=== PATIENT | female | born 1955 | race Caucasian/White ===

== ENCOUNTER → 2017-11-07 | Outpatient (CLI) | payer OTHER, SELFPAY ==
[2017-11-07 11:13] LABS: Hematocrit 38.7 % (36-46); Hemoglobin 13.3 g/dL (12.0-16.0); Mean Corpuscular HGB Conc 34.4 % (30-36); Mean Corpuscular Hemoglobin 31.4 PG (26-34); Mean Corpuscular Volume 91.4 fL (80-100); Platelet Count 127 X10^3/uL (150-400); Red Blood Cell Count 4.24 X10^6/uL (4.0-5.2); Red Cell Distribution Width 13.1 % (11.6-14.8); White Blood Cell Count 10.4 X10^3/uL (4.5-11.0)
[2017-11-07 11:14] LABS: Add Manual Diff / Slide Review YES
[2017-11-07 11:31] LABS: Neutrophils Absolute Manual 3016 /uL (3000-5900); Total Cells Counted 100
[2017-11-07 11:32] LABS: Smudge Cells 1+
[2017-11-07 11:34] LABS: Alanine Aminotransferase 28 IU/L (9-52); Albumin 4.3 g/dL (3.5-5.0); Albumin Globulin Ratio 1.4 (1.0-2.8); Alkaline Phosphatase 70 U/L (38-126); Aspartate Aminotransferase 27 IU/L (14-36); BUN Creatinine Ratio 31.4 (6-22); Bilirubin Total 0.5 mg/dL (0.2-1.3); Calcium 9.5 mg/dL (8.4-10.2); Estimated Glomerular Filt Rate > 60.0 mL/min (>60); Glucose 107 mg/dL (80-110); HEMOLYSIS 16 (0-50); Lactate Dehydrogenase 431 U/L (313-618); Potassium 4.3 mmol/L (3.4-5.1); Sodium 140 mmol/L (137-145); Total Protein 7.3 g/dL (6.3-8.2)
== END ==
LOC: ONC 10:57
PROVIDERS: Family Provider Family Medicine; PCP Family Medicine; Visit Provider Nurse Practitioner Gerontology
DX: D72.820 Lymphocytosis (symptomatic) (principal)
CPT/HCPCS: 36415; 80053; 83615; 85025

== ENCOUNTER → 2018-04-17 08:37 | Outpatient (CLI) | payer OTHER, SELFPAY ==
[2018-04-17 10:09] LABS: Hematocrit 41.5 % (36-46); Mean Corpuscular HGB Conc 33.7 % (30-36); Mean Corpuscular Hemoglobin 31.1 PG (26-34); Mean Corpuscular Volume 92.3 fL (80-100); Platelet Count 139 X10^3/uL (150-400); Red Blood Cell Count 4.49 X10^6/uL (4.0-5.2); Red Cell Distribution Width 13.1 % (11.6-14.8); White Blood Cell Count 9.5 X10^3/uL (4.5-11.0)
[2018-04-17 10:10] LABS: Add Manual Diff / Slide Review YES
[2018-04-17 10:20] LABS: BUN Creatinine Ratio 28.8 (6-22); Blood Urea Nitrogen 23 mg/dL (7-17); Calcium 9.3 mg/dL (8.4-10.2); Carbon Dioxide 32 mmol/L (22-32); Chloride 104 mmol/L (98-107); Cholesterol 255 mg/dL (140-199); Estimated Glomerular Filt Rate > 60.0 mL/min (>60); Glucose 104 mg/dL (80-110); HDL Cholesterol 70 mg/dL (40-60); HEMOLYSIS < 15 (0-50); LDL Cholesterol Calculated 172 mg/dL (<100); Potassium 4.2 mmol/L (3.4-5.1); Sodium 144 mmol/L (137-145); Triglycerides 65 mg/dL (35-150)
[2018-04-17 10:40] LABS: Thyroid Stimulating Hormone 2.25 uIU/mL (0.47-4.68)
[2018-04-17 12:27] LABS: Neutrophils Absolute Manual 2185 /uL (3000-5900); Total Cells Counted 100
[2018-04-17 12:28] LABS: Smudge Cells 1+
== END ==
PROVIDERS: Family Provider Family Medicine; PCP Family Medicine; Visit Provider Internal Medicine
DX: E03.9 Hypothyroidism, unspecified (principal); E78.5 Hyperlipidemia, unspecified
CPT/HCPCS: 36415; 80048; 80061; 84443; 85025

== ENCOUNTER → 2018-04-19 11:29 | Outpatient (CLI) | payer OTHER, SELFPAY ==
[2018-04-19 11:45] LABS: Add Manual Diff / Slide Review NO; Basophils Percent Auto 0.2 % (0-2); Eosinophils Percent Auto 0.6 % (2-4); Hematocrit 41.1 % (36-46); Hemoglobin 13.6 g/dL (12.0-16.0); Lymphocytes Percent Auto 60.6 % (25-40); Mean Corpuscular Volume 93.7 fL (80-100); Monocytes Percent Auto 5.6 % (3-14); Neutrophils Absolute Auto 3800 /uL (3000-5900); Platelet Count 141 X10^3/uL (150-400); Red Blood Cell Count 4.39 X10^6/uL (4.0-5.2); Red Cell Distribution Width 13.3 % (11.6-14.8); White Blood Cell Count 11.5 X10^3/uL (4.5-11.0)
[2018-04-19 12:11] LABS: Alanine Aminotransferase 32 IU/L (9-52); Albumin 4.4 g/dL (3.5-5.0); Albumin Globulin Ratio 1.5 (1.0-2.8); Alkaline Phosphatase 82 U/L (38-126); Aspartate Aminotransferase 28 IU/L (14-36); Bilirubin Total 0.6 mg/dL (0.2-1.3); Blood Urea Nitrogen 24 mg/dL (7-17); Calcium 9.3 mg/dL (8.4-10.2); Carbon Dioxide 30 mmol/L (22-32); Chloride 104 mmol/L (98-107); Estimated Glomerular Filt Rate > 60.0 mL/min (>60); Globulin 2.9 g/dL (1.7-4.1); Glucose 94 mg/dL (80-110); HEMOLYSIS < 15 (0-50); Lactate Dehydrogenase 432 U/L (313-618); Potassium 3.9 mmol/L (3.4-5.1); Sodium 143 mmol/L (137-145); Total Protein 7.3 g/dL (6.3-8.2)
== END ==
PROVIDERS: Family Provider Family Medicine; PCP Family Medicine; Visit Provider Nurse Practitioner Gerontology
DX: D72.820 Lymphocytosis (symptomatic) (principal)
CPT/HCPCS: 36415; 80053; 83615; 85025

== ENCOUNTER → 2018-08-21 11:41 | Outpatient (CLI) | payer OTHER, SELFPAY ==
--- NOTE | 2018-08-21 | DI.MG.S_ITS ---
BILATERAL DIGITAL SCREENING MAMMOGRAM 3D/2D WITH CAD: 08/21/2018 CLINICAL: Routine screening. Comparison is made to exam dated: 04/21/2016 [facility]. The tissue of both breasts is heterogeneously dense. This may lower the sensitivity of mammography. Current study was also evaluated with a Computer Aided Detection (CAD) system. No significant masses, calcifications, or other findings are seen in either breast. There has been no significant interval change. IMPRESSION: NEGATIVE There is no mammographic evidence of malignancy. A 1 year screening mammogram is recommended. This exam was interpreted at Station ID: [id number]. NOTE: For mammograms, a report in lay terms will be sent to the patient. Approximately 15% of breast malignancies will not be visualized mammographically. In the management of a palpable breast mass, a negative mammogram must not discourage biopsy of a clinically suspicious lesion. Electronically Signed By: Hussein velasco/lachelle:08/21/2018 13:22:27 letter sent: Normal Exam ACR BI-RADS Category 1: Negative [id number]
== END ==
PROVIDERS: Family Provider Family Medicine; PCP Family Medicine; Visit Provider Family Medicine
DX: Z12.31 Encounter for screening mammogram for malignant neoplasm of breast (principal)
CPT/HCPCS: 77063; 77067

== ENCOUNTER → 2019-04-16 08:53 | Outpatient (CLI) | payer OTHER, SELFPAY ==
[2019-04-16 10:39] LABS: Thyroid Stimulating Hormone 2.37 uIU/mL (0.47-4.68)
== END ==
PROVIDERS: PCP Family Medicine; Visit Provider Family Medicine
DX: E03.9 Hypothyroidism, unspecified (principal)
CPT/HCPCS: 36415; 84443

== ENCOUNTER → 2019-08-31 11:53 | Outpatient (CLI) | payer OTHER, SELFPAY ==
--- NOTE | 2019-08-31 | DI.MG.S_ITS ---
BILATERAL DIGITAL SCREENING MAMMOGRAM 3D/2D WITH CAD: 08/31/2019 CLINICAL: Routine screening. Comparison is made to exams dated: 08/21/2018 mammogram, 04/21/2016 mammogram - Located [facility], and 11/28/2014 mammogram - [facility]. The tissue of both breasts is heterogeneously dense. This may lower the sensitivity of mammography. Current study was also evaluated with a Computer Aided Detection (CAD) system. No significant masses, calcifications, or other findings are seen in either breast. There has been no significant interval change. IMPRESSION: NEGATIVE There is no mammographic evidence of malignancy. A 1 year screening mammogram is recommended. This exam was interpreted at Station ID: [id number]. NOTE: For mammograms, a report in lay terms will be sent to the patient. Approximately 15% of breast malignancies will not be visualized mammographically. In the management of a palpable breast mass, a negative mammogram must not discourage biopsy of a clinically suspicious lesion. Electronically Signed By: Hussein velasco/lachelle:08/31/2019 14:14:25 letter sent: Normal Exam ACR BI-RADS Category 1: Negative [id number]
== END ==
PROVIDERS: PCP Family Medicine; Referring Provider Family Medicine; Visit Provider Family Medicine
DX: Z12.31 Encounter for screening mammogram for malignant neoplasm of breast (principal)
CPT/HCPCS: 77063; 77067

== ENCOUNTER → 2020-04-28 14:09 | Outpatient (CLI) | payer OTHER, SELFPAY ==
[2020-04-28 14:35] LABS: Add Manual Diff / Slide Review YES; Hemoglobin 12.6 g/dL (12.0-16.0); Mean Corpuscular HGB Conc 33.1 % (30-36); Mean Corpuscular Hemoglobin 31.2 PG (26-34); Platelet Count 164 X10^3/uL (150-400); Red Blood Cell Count 4.04 X10^6/uL (4.0-5.2); Red Cell Distribution Width 13.5 % (11.6-14.8); White Blood Cell Count 13.2 X10^3/uL (4.5-11.0)
[2020-04-28 15:03] LABS: Neutrophils Absolute Manual 4488 /uL (3000-5900); RBC Morphology Normal Morphology; Total Cells Counted 100
== END ==
PROVIDERS: PCP Family Medicine; Referring Provider Internal Medicine Hematology & Oncology; Visit Provider Internal Medicine Hematology & Oncology
DX: D72.820 Lymphocytosis (symptomatic) (principal)
CPT/HCPCS: 36415; 85025

== ENCOUNTER → 2020-06-24 07:58 | Outpatient (CLI) | payer OTHER, SELFPAY ==
[2020-06-24 09:55] LABS: Cholesterol 295 mg/dL (140-199); Glucose 97 mg/dL (80-110); HDL Cholesterol 85 mg/dL (40-60); LDL Cholesterol Calculated 192 mg/dL (<100); Triglycerides 89 mg/dL (35-150)
[2020-06-24 10:23] LABS: Thyroid Stimulating Hormone 5.27 uIU/mL (0.47-4.68)
== END ==
PROVIDERS: PCP Family Medicine; Referring Provider Family Medicine; Visit Provider Family Medicine
DX: E78.5 Hyperlipidemia, unspecified (principal); Z13.1 Encounter for screening for diabetes mellitus; E03.9 Hypothyroidism, unspecified
CPT/HCPCS: 36415; 80061; 82947; 84443

== ENCOUNTER → 2020-08-21 07:25 | Outpatient (CLI) | payer OTHER, SELFPAY ==
[2020-08-21 08:26] LABS: Cholesterol 296 mg/dL (140-199); HDL Cholesterol 72 mg/dL (40-60); LDL Cholesterol Calculated 212 mg/dL (<100); Triglycerides 60 mg/dL (35-150)
[2020-08-21 09:21] LABS: Thyroid Stimulating Hormone 6.15 uIU/mL (0.47-4.68)
== END ==
PROVIDERS: PCP Family Medicine; Referring Provider Family Medicine; Visit Provider Family Medicine
DX: E03.9 Hypothyroidism, unspecified (principal); E78.5 Hyperlipidemia, unspecified
CPT/HCPCS: 36415; 80061; 84443

== ENCOUNTER → 2020-09-01 11:49 | Outpatient (CLI) | payer OTHER, SELFPAY ==
--- NOTE | 2020-09-01 11:50 | DI.MG.S_ITS ---
BILATERAL DIGITAL SCREENING MAMMOGRAM 3D/2D WITH CAD: 09/01/2020 CLINICAL: Routine screening. Comparison is made to exams dated: 09/01/2020 mammogram, 08/31/2019 mammogram, and 08/21/2018 mammogram - [facility]. The tissue of both breasts is heterogeneously dense. This may lower the sensitivity of mammography. Current study was also evaluated with a Computer Aided Detection (CAD) system. No significant masses, calcifications, or other findings are seen in either breast. There has been no significant interval change. IMPRESSION: NEGATIVE There is no mammographic evidence of malignancy. A 1 year screening mammogram is recommended. This exam was interpreted at Station ID: [id number]. NOTE: For mammograms, a report in lay terms will be sent to the patient. Approximately 15% of breast malignancies will not be visualized mammographically. In the management of a palpable breast mass, a negative mammogram must not discourage biopsy of a clinically suspicious lesion. Electronically Signed By: Yg aviles/lachelle:09/01/2020 14:03:30 letter sent: Normal Exam ACR BI-RADS Category 1: Negative [id number]
== END ==
PROVIDERS: PCP Family Medicine; Referring Provider Family Medicine; Visit Provider Family Medicine
DX: Z12.31 Encounter for screening mammogram for malignant neoplasm of breast (principal)
CPT/HCPCS: 77063; 77067

== ENCOUNTER → 2020-11-28 08:01 | Outpatient (CLI) | payer OTHER, SELFPAY ==
[2020-11-28 09:05] LABS: Cholesterol 266 mg/dL (140-199); HDL Cholesterol 64 mg/dL (40-60); LDL Cholesterol Calculated 185 mg/dL (<100); Triglycerides 84 mg/dL (35-150)
== END ==
PROVIDERS: PCP Family Medicine; Referring Provider Family Medicine; Visit Provider Family Medicine
DX: E03.9 Hypothyroidism, unspecified (principal); E78.5 Hyperlipidemia, unspecified
CPT/HCPCS: 36415; 80061; 84443

== ENCOUNTER → 2021-01-16 07:01 | Outpatient (CLI) | payer MEDICARE, OTHER, SELFPAY ==
[2021-01-16 09:28] LABS: Thyroid Stimulating Hormone 2.39 uIU/mL (0.47-4.68)
== END ==
PROVIDERS: PCP Family Medicine; Referring Provider Family Medicine; Visit Provider Family Medicine
DX: E03.9 Hypothyroidism, unspecified (principal)
CPT/HCPCS: 36415; 84443

== ENCOUNTER 2021-01-25 23:39 | Observation (INO) | payer MEDICARE, OTHER, SELFPAY ==
[2021-01-25 23:42] VITALS: BP 123/64; PULSE 89; RESP 15; TEMP 36.4; O2SAT 99; BMI 22.8
[2021-01-26] VITALS (10 sets, daily range): BP systolic 103–137; BP diastolic 45–70; PULSE 65–80; RESP 16–18; TEMP 37–37.4; O2SAT 94–98; BMI 22.8
--- NOTE | 2021-01-26 00:29 | DI.RAD.S_ITS ---
PROCEDURE: XR ACUTE ABDOMEN SERIES INDICATIONS: Abdominal pain TECHNIQUE: One view chest and two views of the abdomen were acquired. COMPARISON: [facility], , ABDOMEN ACUTE SERIES, 07/13/2016, 12:21. FINDINGS: Surgical changes and devices: Right upper quadrant clips. Chest: Lungs are clear. Heart size is normal. No pleural effusions. No pneumoperitoneum. Abdomen: Bowel gas pattern is normal. No suspicious calcifications. Visualized solid organ contours appear normal. Bones: No suspicious bony lesions. IMPRESSION: 1. No evidence acute pulmonary process. 2. No evidence acute abdominal process. Dictated by: Saji Spear M.D. on 01/26/2021 at 0:48 Approved by: Saji Spear M.D. on 01/26/2021 at 0:49
--- NOTE | 2021-01-26 00:50 | ED_ITS ---
HPI - Abdominal Pain General Chief Complaint: Abdominal Pain Stated Complaint: states home temp 100/abd pain x 24 hrs Time Seen by Provider: 01/26/21 00:20 Mode of arrival: Wheelchair History of Present Illness HPI narrative: 66-year-old female nonsmoker with noncontributory medical history presents with her in the chief complaint of a low-grade fever with epigastric pain that woke her up yesterday morning at 2:00 a.m.. She states it is largely there without any obvious provocation or palliation. She denies any radiation of her discomfort. She denies any vomiting or diarrhea but has had nausea. She denies any dysuria, frequency or urgency. She states she has no change in symptoms with eating, drinking or move. Related Data Home Medications Medication Instructions Recorded Confirmed VITAMIN D (Vitamin D3) 1,000 unit PO QDAY #0 06/07/11 05/12/20 BIOTIN 1,000 mcg PO QDAY #0 04/30/16 05/12/20 cyanocobalamin (vitamin B-12) 50 50 mcg PO DAILY #0 05/23/17 05/12/20 mcg tablet (Vitamin B-12) diphenhydramine HCl [Allergy PO 01/19/18 05/12/20 (diphenhydramine)] blue-green algae (bulk) (Spirulina) ea MISCELLANEOUS 05/08/19 05/12/20 Previous Rx's Medication Instructions Recorded trazodone 100 mg tablet 100 mg PO BEDTIME #30 tab 01/20/21 levothyroxine 125 mcg tablet 125 mcg PO DAILY #90 tab 01/23/21 Allergies Allergy/AdvReac Type Severity Reaction Status Date / Time Fish Containing Products Allergy Mild FISH Verified 05/12/20 10:44 [FISH CONTAINING PRODUCTS] PROTEIN Review of Systems Review of Systems Narrative: GENERAL: See HPI HEENT: Denies sinus pain, ear pain, sore throat, difficulty swallowing, dizziness. RESPIRATORY: Denies dyspnea, cough, wheezing, hemoptysis, sputum. CARDIOVASCULAR: Denies chest pain, palpitations, orthopnea, edema, GASTROINTESTINAL: See HPI : Denies dysuria, frequency, incontinence, hematuria, urinary retention. MUSCULOSKELETAL: denies weakness, joint pain, or bony pain SKIN: Denies rash, skin lesions, or other NEUROLOGIC: Denies weakness, headache, numbness, change in speech, confusion, seizures, incoordination. PSYCHIATRIC: No concerning psychosocial issues. 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 Well-developed patient, in mild distress. HEAD: Atraumatic. Normocephalic. EYES: Pupils equal round and reactive. Extraocular motions intact. No scleral icterus. No injection or drainage. ENT: Nose without bleeding, purulent drainage. Throat without erythema, tonsillar hypertrophy or exudate. Airway patent. NECK: Trachea midline. Non tender CARDIOVASCULAR: Regular rate and rhythm without murmurs, gallops, or rubs. RESPIRATORY: Clear to auscultation. Breath sounds equal bilaterally. No wheezes, rales, or rhonchi. GASTROINTESTINAL: Abdomen soft, epigastric pain, nondistended. EXTREMITIES: No edema or joint tenderness. BACK: Nontender without deformity or crepitance. No flank tenderness. NEURO: AOx3. SKIN: No rash or erythema of visible areas Initial Vital Signs Initial Vital Signs: Vital Signs Temperature 97.6 F 01/25/21 23:42 Pulse Rate 89 01/25/21 23:42 Respiratory Rate 15 01/25/21 23:42 Blood Pressure 123/64 01/25/21 23:42 Pulse Oximetry 99 01/25/21 23:42 Course Orders Ordered: ED Orders 01/26/21 EKG-12 Lead Stat 01/26/21 00:29 XR acute abdomen series Stat 01/26/21 01:11 Complete Blood Count AUTO DIFF Stat Comprehensive Metabolic Panel Stat Lipase Stat 01/26/21 01:36 CT abdomen pelvis w con Stat 01/26/21 03:50 Urinalysis and Microscopic Stat 01/26/21 04:30 COVID19 - ADMIT (AUTO ADJUDICATION SPECIALIST swab/PCR) Stat Discontinued Medications Sodium Chloride (Normal Saline 0.9%) 1,000 mls @ 1,000 mls/hr IV BOLUS ONE Stop: 01/26/21 01:28 Last Infusion: 01/26/21 03:11 Dose: 0 mls/hr Documented by: Admin: 01/26/21 01:24 Dose: 1,000 mls/hr Documented by: CALI Vital Signs Vital signs: Vital Signs - 8 hr 01/25/21 23:42 01/26/21 04:26 01/26/21 04:28 Temperature 97.6 F Pulse Rate 89 80 74 Respiratory Rate 15 Blood Pressure 123/64 137/65 Pulse Oximetry 99 94 96 01/26/21 04:30 01/26/21 05:00 Temperature Pulse Rate 74 70 Respiratory Rate Blood Pressure 128/60 Pulse Oximetry 97 96 MDM - Abdominal Pain Lab Data Result diagrams: 01/26/21 01:11 01/26/21 01:11 Labs: Lab Results 01/26/21 01/26/21 01/26/21 Range/Units 01:11 01:11 03:50 WBC 17.4 H (4.5-11.0) X10^3/uL RBC 4.41 (4.0-5.2) X10^6/uL Hgb 13.3 (12.0-16.0) g/dL Hct 41.2 (36-46) % MCV 93.5 (80-100) fL MCH 30.2 (26-34) PG MCHC 32.3 (30-36) % RDW 13.5 (11.6-14.8) % Plt Count 126 L (150-400) X10^3/uL Neut % (Auto) 53.3 (50-75) % Lymph % (Auto) 41.6 H (25-40) % Scott % (Auto) 4.7 (3-14) % Eos % (Auto) 0.2 L (2-4) % Baso % (Auto) 0.2 (0-2) % Neut # (Auto) 9300 H (8562-4873) /uL Lymph # (Auto) 7200 H (8364-9704) /uL Scott # (Auto) 800 (0-900) /uL Eos # (Auto) 0 (0-450) /uL Baso # (Auto) 0 (0-100) /uL Sodium 136 L (137-145) mmol/L Potassium 3.9 (3.4-5.1) mmol/L Chloride 105 (98-107) mmol/L Carbon Dioxide 25 (22-32) mmol/L BUN 22 H (7-17) mg/dL Creatinine 0.62 (0.52-1.04) mg/dL Estimated GFR > 60.0 (>60) mL/min BUN/Creatinine Ratio 35.5 H (6-22) Glucose 128 H (80-110) mg/dL Calcium 9.3 (8.4-10.2) mg/dL Total Bilirubin 0.6 (0.2-1.3) mg/dL AST 27 (14-36) IU/L ALT 18 (<35) IU/L Alkaline Phosphatase 65 (38-126) U/L Total Protein 7.1 (6.3-8.2) g/dL Albumin 4.1 (3.5-5.0) g/dL Globulin 3.0 (1.7-4.1) g/dL Albumin/Globulin Ratio 1.4 (1.0-2.8) Lipase 65 (23-300) U/L Urine Color Yellow Urine Appearance Clear Urine pH 5.0 (4.5-8.0) Ur Specific [place] 1.010 (1.000-1.035) Urine Protein Negative (Negative) Urine Glucose (UA) Negative (Negative) g/dL Urine Ketones 3+ H (NEGATIVE) Urine Occult Blood Trace-lysed (Negative) Urine Nitrate Negative (Negative) Urine Bilirubin Negative (NEGATIVE) Urine Urobilinogen 0.2 (0.2) E.U./dL Ur Leukocyte Esterase Negative (NEGATIVE) Urine RBC None seen (0-5/HPF) Urine WBC None seen (0-5/HPF) Ur Squamous Epith Cells 0-1 /hpf (0-5/HPF) Urine Bacteria None seen (None) Ur Culture Indicated? Cult not indicated SARS-CoV-2 (PCR) (Negative) 01/26/21 Range/Units 04:30 WBC (4.5-11.0) X10^3/uL RBC (4.0-5.2) X10^6/uL Hgb (12.0-16.0) g/dL Hct (36-46) % MCV (80-100) fL MCH (26-34) PG MCHC (30-36) % RDW (11.6-14.8) % Plt Count (150-400) X10^3/uL Neut % (Auto) (50-75) % Lymph % (Auto) (25-40) % Scott % (Auto) (3-14) % Eos % (Auto) (2-4) % Baso % (Auto) (0-2) % Neut # (Auto) (7054-4705) /uL Lymph # (Auto) (4934-7855) /uL Scott # (Auto) (0-900) /uL Eos # (Auto) (0-450) /uL Baso # (Auto) (0-100) /uL Sodium (137-145) mmol/L Potassium (3.4-5.1) mmol/L Chloride (98-107) mmol/L Carbon Dioxide (22-32) mmol/L BUN (7-17) mg/dL Creatinine (0.52-1.04) mg/dL Estimated GFR (>60) mL/min BUN/Creatinine Ratio (6-22) Glucose (80-110) mg/dL Calcium (8.4-10.2) mg/dL Total Bilirubin (0.2-1.3) mg/dL AST (14-36) IU/L ALT (<35) IU/L Alkaline Phosphatase (38-126) U/L Total Protein (6.3-8.2) g/dL Albumin (3.5-5.0) g/dL Globulin (1.7-4.1) g/dL Albumin/Globulin Ratio (1.0-2.8) Lipase (23-300) U/L Urine Color Urine Appearance Urine pH (4.5-8.0) Ur Specific [place] (1.000-1.035) Urine Protein (Negative) Urine Glucose (UA) (Negative) g/dL Urine Ketones (NEGATIVE) Urine Occult Blood (Negative) Urine Nitrate (Negative) Urine Bilirubin (NEGATIVE) Urine Urobilinogen (0.2) E.U./dL Ur Leukocyte Esterase (NEGATIVE) Urine RBC (0-5/HPF) Urine WBC (0-5/HPF) Ur Squamous Epith Cells (0-5/HPF) Urine Bacteria (None) Ur Culture Indicated? SARS-CoV-2 (PCR) Negative (Negative) Discharge Plan Departure Prescriptions: No Action VITAMIN D (Vitamin D3) 1,000 unit PO QDAY Qty: 0 RF: 0 BIOTIN 1,000 mcg PO QDAY Qty: 0 RF: 0 Vitamin B-12 50 MCG tablet 50 mcg PO DAILY Qty: 0 RF: 0 trazodone 100 mg tablet 100 mg PO BEDTIME Qty: 30 RF: 1 levothyroxine 125 mcg tablet 125 mcg PO DAILY Qty: 90 RF: 2 diphenhydramine HCl PO RF: 0 Spirulina Powder MISCELLANEOUS RF: 0 Referrals: Nataly Butler MD [Primary Care Provider] -
[2021-01-26] MEDS: SODIUM CHLORIDE 0.9% 1,000 ML 1000 ML IV (01:24)
[2021-01-26 01:25] LABS: Add Manual Diff / Slide Review NO; Basophils Absolute Auto 0 /uL (0-100); Basophils Percent Auto 0.2 % (0-2); Eosinophils Absolute Auto 0 /uL (0-450); Eosinophils Percent Auto 0.2 % (2-4); Hematocrit 41.2 % (36-46); Hemoglobin 13.3 g/dL (12.0-16.0); Lymphocytes Absolute Auto 7200 /uL (1100-4500); Lymphocytes Percent Auto 41.6 % (25-40); Mean Corpuscular HGB Conc 32.3 % (30-36); Mean Corpuscular Hemoglobin 30.2 PG (26-34); Mean Corpuscular Volume 93.5 fL (80-100); Monocytes Absolute Auto 800 /uL (0-900); Monocytes Percent Auto 4.7 % (3-14); Neutrophils Absolute Auto 9300 /uL (1500-7000); Neutrophils Percent Auto 53.3 % (50-75); Platelet Count 126 X10^3/uL (150-400); Red Blood Cell Count 4.41 X10^6/uL (4.0-5.2); Red Cell Distribution Width 13.5 % (11.6-14.8); White Blood Cell Count 17.4 X10^3/uL (4.5-11.0)
[2021-01-26 01:32] LABS: Alanine Aminotransferase 18 IU/L (<35); Albumin 4.1 g/dL (3.5-5.0); Albumin Globulin Ratio 1.4 (1.0-2.8); Alkaline Phosphatase 65 U/L (38-126); Aspartate Aminotransferase 27 IU/L (14-36); BUN Creatinine Ratio 35.5 (6-22); Bilirubin Total 0.6 mg/dL (0.2-1.3); Blood Urea Nitrogen 22 mg/dL (7-17); Calcium 9.3 mg/dL (8.4-10.2); Carbon Dioxide 25 mmol/L (22-32); Chloride 105 mmol/L (98-107); Estimated Glomerular Filt Rate > 60.0 mL/min (>60); Glucose 128 mg/dL (80-110); HEMOLYSIS 23 (0-50); Lipase 65 U/L (23-300); Potassium 3.9 mmol/L (3.4-5.1); Sodium 136 mmol/L (137-145); Total Protein 7.1 g/dL (6.3-8.2)
--- NOTE | 2021-01-26 01:36 | DI.CT.S_ITS ---
PROCEDURE: CT ABDOMEN PELVIS W CON INDICATIONS: pain, fever, leukocytosis TECHNIQUE: After the administration of intravenous contrast, axial sections acquired from the lung bases to the pubic symphysis. Coronal and sagittal reformats were performed. For radiation dose reduction, the following was used: automated exposure control, adjustment of mA and/or kV according to patient size. COMPARISON: [facility], CT, ABDOMEN/PELVIS WITH CONTRAST, 06/30/2016, 4:43. FINDINGS: Image quality: Excellent. Lung bases: Unremarkable. Heart: No significant findings. ABDOMEN: Liver: Unremarkable. Gallbladder: Surgically absent Biliary ducts: Chronically dilated biliary tree to the level of the head of the pancreas. Subjacent to the distal common duct is a duodenal diverticulum, which appears to exert some mass effect on the distal common duct.. Pancreas: Unremarkable. Spleen: Unremarkable. Adrenal Glands: Unremarkable. Kidneys and Ureters: Unremarkable. Stomach and Bowel: Stomach, small bowel loops, and colon are unremarkable. Peritoneum: No abnormal intraperitoneal fluid. No free air. Ventral Wall: No hernias. Abdominal Nodes: No retroperitoneal or mesenteric adenopathy by size criteria. Vessels: Aorta and inferior vena cava are normal in size. PELVIS: Pelvic Organs: Unremarkable. Bladder: Unremarkable. Pelvic Nodes: No enlarged lymph nodes. Miscellaneous: No hernias are seen. Bones: Unremarkable. IMPRESSION: 1. Remote cholecystectomy. 2. Chronically dilated biliary tree. 3. 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 These findings are not significantly changed from the prior study. Dictated by: Saji Spear M.D. on 01/26/2021 at 1:58 Approved by: Saji Spear M.D. on 01/26/2021 at 2:05
[2021-01-26 03:52] LABS: Bacteria Urine None Seen; RBC Urine None Seen (0-5/HPF); WBC Urine None Seen (0-5/HPF)
[2021-01-26 03:53] LABS: Appearance Urine UA CLEAR; Bilirubin Urine UA NEGATIVE (NEGATIVE); Color Urine UA YELLOW; Glucose Urine UA NEGATIVE (Negative); Ketones Urine UA 3+ (NEGATIVE); Leukocyte Esterase Urine UA NEGATIVE (NEGATIVE); Nitrite Urine UA NEGATIVE (Negative); Occult Blood Urine UA TRACE-LYSED (Negative); Protein Urine UA NEGATIVE (Negative); Urobilinogen Urine UA 0.2 E.U./dL (0.2)
[2021-01-26 04:09] LABS: Culture Indicated Urine Cult Not Indicated; Squamous Epithelial Cell Urine 0-1 /HPF (0-5/HPF)
[2021-01-26 05:31] LABS: COVID19 - ADMIT (NP swab/PCR) Negative (Negative)
[2021-01-26] MEDS: DEXTROSE 5%-0.9% NS 1,000 ML 100 ML IV (07:13)
[2021-01-26] MEDS: LEVOTHYROXINE 125 MCG TABLET PO (08:45)
--- NOTE | 2021-01-26 10:20 | P.HP_ITS ---
History of Present Illness History of Present Illness Date Patient Seen: 01/26/21 Time Patient Seen: 07:40 Chief complaint: states home temp 100/abd pain x 24 hrs Narrative: Pt is a 66yo woman with hypothyroidism, monoclonal B-cell lymphocytosis who presented with abdominal pain and fever. The patient reports that starting 2 nights ago she developed significant epigastric abdominal pain. She reports feeling that it felt like a ?rock? in her stomach. It was achy burning sensation. The next day, the pain subsided and she just felt slightly uncomfortable. That evening the pain returned. She was unable to sleep well as a result. She then spiked a fever to 100.9 F. that is when she decided to come into the emergency room for evaluation. The patient does report that she had a single episode of emesis this morning. She denies any other significant nausea or vomiting. She denies any change in her bowel movements, and is having them regularly. She denies any blood in her stool or emesis. She has had mild heartburn in the past, and states that this did not feel anything like that. She has not had any recent sick contacts. Prior to 2 nights ago she was feeling well without any issues. The patient denies any recent cough, shortness of breath, chest pain, ear pain, sore throat, dysuria, urinary frequency urgency. In the emergency room, lab work was completed that was unrevealing other than a slightly elevated white blood cell count. Abdominal x-ray and CT scan were also normal. Patient History Medical History Hypothyroidism Menopause Monoclonal B-cell lymphocytosis Surgical History History of bilateral salpingectomy History of intestinal surgery (1988) Status post appendectomy Status post cholecystectomy (02/2006) Family & Social History Family History Sister RA (rheumatoid arthritis) Social History: household members spouse Prior Living Arrangements House lives independently Yes caregiver/support person No Safety & Behavioral: Feels Safe in Current Yes Environment Tobacco & Substance use: Smoking Status Former smoker alcohol intake current alcohol intake frequency 0-2 drinks per day Substance Use Type does not use Meds Home Medications and Allergies Home Medications Medication Instructions Recorded Confirmed Type VITAMIN D (Vitamin D3) 1,000 unit PO QDAY #0 06/07/11 01/26/21 History BIOTIN 1,000 mcg PO QDAY #0 04/30/16 01/26/21 History cyanocobalamin (vitamin B-12) 50 50 mcg PO DAILY #0 05/23/17 01/26/21 History mcg tablet (Vitamin B-12) trazodone 100 mg tablet 100 mg PO BEDTIME #30 tab 01/20/21 01/26/21 Rx levothyroxine 125 mcg tablet 125 mcg PO DAILY #90 tab 01/23/21 01/26/21 Rx Allergies Allergy/AdvReac Type Severity Reaction Status Date / Time Fish Containing Products Allergy Mild FISH Verified 05/12/20 10:44 [FISH CONTAINING PRODUCTS] PROTEIN Exam Vital Signs (past 8 hours): - 01/26/21 04:26 01/26/21 04:28 01/26/21 04:30 Pulse Rate 80 74 74 Respiratory Rate Blood Pressure 137/65 128/60 Pulse Oximetry 94 96 97 01/26/21 05:00 01/26/21 07:05 01/26/21 07:20 Pulse Rate 70 68 Respiratory Rate 16 Blood Pressure 103/45 L Pulse Oximetry 96 94 94 Oxygen Delivery Method Room Air Narrative Exam Narrative: GEN - alert, cooperative and no distress HEENT - normocephalic and atraumatic, moist mucus membranes NECK - FROM, no adenopathy HEART - RRR, S1, S2 normal, no S3 or S4, no murmurs LUNGS - symmetric chest rise, no accessory muscles, clear to auscultation bilaterally ABD - flat, nondistended, normal bowel sounds, soft, nontender and no hepatomegaly, splenomegaly or masses EXT - no cyanosis, clubbing or edema SKIN - no rashes or suspicious lesions NEURO - no gross deficits Objective Labs Result Diagrams: 01/26/21 01:11 01/26/21 01:11 Labs: Laboratory Results - last 24 hr 01/26/21 01/26/21 01/26/21 01:11 01:11 03:50 WBC 17.4 H RBC 4.41 Hgb 13.3 Hct 41.2 MCV 93.5 MCH 30.2 MCHC 32.3 RDW 13.5 Plt Count 126 L Neut % (Auto) 53.3 Lymph % (Auto) 41.6 H [place] % (Auto) 4.7 Eos % (Auto) 0.2 L Baso % (Auto) 0.2 Neut # (Auto) 9300 H Lymph # (Auto) 7200 H [place] # (Auto) 800 Eos # (Auto) 0 Baso # (Auto) 0 Sodium 136 L Potassium 3.9 Chloride 105 Carbon Dioxide 25 BUN 22 H Creatinine 0.62 Estimated GFR > 60.0 BUN/Creatinine Ratio 35.5 H Glucose 128 H Calcium 9.3 Total Bilirubin 0.6 AST 27 ALT 18 Alkaline Phosphatase 65 Total Protein 7.1 Albumin 4.1 Globulin 3.0 Albumin/Globulin Ratio 1.4 Lipase 65 Urine Color Yellow Urine Appearance Clear Urine pH 5.0 Ur Specific [place] 1.010 Urine Protein Negative Urine Glucose (UA) Negative Urine Ketones 3+ H Urine Occult Blood Trace-lysed Urine Nitrate Negative Urine Bilirubin Negative Urine Urobilinogen 0.2 Ur Leukocyte Esterase Negative Urine RBC None seen Urine WBC None seen Ur Squamous Epith Cells 0-1 /hpf Urine Bacteria None seen Ur Culture Indicated? Cult not indicated SARS-CoV-2 (PCR) 01/26/21 04:30 WBC RBC Hgb Hct MCV MCH MCHC RDW Plt Count Neut % (Auto) Lymph % (Auto) [place] % (Auto) Eos % (Auto) Baso % (Auto) Neut # (Auto) Lymph # (Auto) [place] # (Auto) Eos # (Auto) Baso # (Auto) Sodium Potassium Chloride Carbon Dioxide BUN Creatinine Estimated GFR BUN/Creatinine Ratio Glucose Calcium Total Bilirubin AST ALT Alkaline Phosphatase Total Protein Albumin Globulin Albumin/Globulin Ratio Lipase Urine Color Urine Appearance Urine pH Ur Specific [place] Urine Protein Urine Glucose (UA) Urine Ketones Urine Occult Blood Urine Nitrate Urine Bilirubin Urine Urobilinogen Ur Leukocyte Esterase Urine RBC Urine WBC Ur Squamous Epith Cells Urine Bacteria Ur Culture Indicated? SARS-CoV-2 (PCR) Negative Assessment & Plan Assessment & Plan narrative: Pt is a 66yo woman with hypothyroidism, monoclonal B-cell lymphocytosis who presented with abdominal pain and fever. Unclear etiology at this time as the patient's lab work is unrevealing other than a slightly elevated white blood cell count, and abdominal imaging is normal. The patient's pain is improved this morning however. Will continue to monitor for evolution of her symptoms that might reveal a possible etiology. 1) Abdominal pain and elevated temperature: - Continue to monitor for worsening symptoms and recurrent fever - Tylenol PRN - NPO for now, consider advancing diet later today if pain continues to be mild - mIVF for now - Zofran PRN for nausea 2) Hypothyroidism: - Continue home Levothyroxine DVT ppx: SCDs Code: Full Dispo: Pending improvement in symptoms and no recurrent fever, likely ready for d/c tomorrow. Admitted under observation.
[2021-01-27 00:28] VITALS: TEMP 37.5
[2021-01-27] MEDS: ACETAMINOPHEN 325 MG TABLET 650 MG PO (00:28)
[2021-01-27 01:44] VITALS: BP 113/63; PULSE 71; RESP 14; TEMP 37.5; O2SAT 96
[2021-01-27 05:33] LABS: Add Manual Diff / Slide Review NO; Basophils Absolute Auto 0 /uL (0-100); Basophils Percent Auto 0.2 % (0-2); Eosinophils Absolute Auto 100 /uL (0-450); Eosinophils Percent Auto 0.8 % (2-4); Hematocrit 36.4 % (36-46); Hemoglobin 11.8 g/dL (12.0-16.0); Lymphocytes Absolute Auto 4800 /uL (1100-4500); Lymphocytes Percent Auto 41.5 % (25-40); Mean Corpuscular HGB Conc 32.5 % (30-36); Mean Corpuscular Hemoglobin 30.5 PG (26-34); Mean Corpuscular Volume 93.9 fL (80-100); Monocytes Absolute Auto 900 /uL (0-900); Monocytes Percent Auto 7.3 % (3-14); Neutrophils Absolute Auto 5800 /uL (1500-7000); Neutrophils Percent Auto 50.2 % (50-75); Platelet Count 101 X10^3/uL (150-400); Red Blood Cell Count 3.88 X10^6/uL (4.0-5.2); Red Cell Distribution Width 13.6 % (11.6-14.8); White Blood Cell Count 11.6 X10^3/uL (4.5-11.0)
[2021-01-27 05:42] LABS: Alanine Aminotransferase 18 IU/L (<35); Albumin 3.2 g/dL (3.5-5.0); Albumin Globulin Ratio 1.1 (1.0-2.8); Alkaline Phosphatase 42 U/L (38-126); Aspartate Aminotransferase 24 IU/L (14-36); BUN Creatinine Ratio 21.3 (6-22); Bilirubin Total 0.8 mg/dL (0.2-1.3); Blood Urea Nitrogen 10 mg/dL (7-17); Calcium 8.8 mg/dL (8.4-10.2); Carbon Dioxide 27 mmol/L (22-32); Chloride 108 mmol/L (98-107); Estimated Glomerular Filt Rate > 60.0 mL/min (>60); Globulin 2.9 g/dL (1.7-4.1); Glucose 126 mg/dL (80-110); HEMOLYSIS < 15 (0-50); Potassium 3.7 mmol/L (3.4-5.1); Sodium 138 mmol/L (137-145); Total Protein 6.1 g/dL (6.3-8.2)
[2021-01-27] MEDS: LEVOTHYROXINE 125 MCG TABLET PO (06:23)
[2021-01-27 09:00] VITALS: BP 108/62; PULSE 72; RESP 18; TEMP 36.4; O2SAT 98
--- NOTE | 2021-01-27 09:36 | CM.DANOTE ---
DCP/Assessment: Reviewed chart. Patient is a 66yr old female admitted to [facility] with abdominal pain and temp. PCP is Dr. Butler. Primary payor is 1)Medicare 2)[employer]. Met with patient explained CM/SW role. Patient reports that she is I with all ADL's. Patient hopes to d/c home today if stable. Per patient, Dr. Butler expected in later to determine if patient will discharge. P: Home when stable. RAY Burrows Discharge Planning/Care Management CM Discharge Assessment Start: 01/27/21 09:34 Freq: Status: Active Protocol: Document 01/27/21 09:34 KJS (Rec: 01/27/21 09:36 KJS [id number]) Discharge Planning Assessment Assigned Hand Engraver RAY Burrows Contact Information Carmelo Piña (spouse) ph# [phone] Advance Directives? Yes Advance Directives on File No History Provided By Patient,Medical Record Prior Living Arrangements House Household Members spouse Type of transporation used prior to Drives own vehicle admit Independent with ADL's Yes Is patient alert and oriented? Yes Caregiver for Another No Barriers to Discharge No Discharge Plan Home Transportation Arrangement Family to provide transport. Referrals Initiated None needed Whiteboard Updated in Patient Room with Yes name and ext. # of Hand Engraver Review Status In Process Next Review Type Continued Stay Review
--- NOTE | 2021-01-27 11:15 | PC.NURSE ---
Assess- Patient is alert and oriented x3, she denies pain or discomfort. Up in room independently. Started on Protonix, she will most likely go home this afternoon. Resting now.
--- NOTE | 2021-01-27 13:18 | PM.DS.1 ---
History of Present Illness History of Present Illness Chief complaint: states home temp 100/abd pain x 24 hrs Narrative: Pt is a 66yo woman with hypothyroidism, monoclonal B-cell lymphocytosis who presented with abdominal pain and fever. The patient reports that starting 2 nights ago she developed significant epigastric abdominal pain. She reports feeling that it felt like a ?rock? in her stomach. It was achy burning sensation. The next day, the pain subsided and she just felt slightly uncomfortable. That evening the pain returned. She was unable to sleep well as a result. She then spiked a fever to 100.9 F. that is when she decided to come into the emergency room for evaluation. The patient does report that she had a single episode of emesis this morning. She denies any other significant nausea or vomiting. She denies any change in her bowel movements, and is having them regularly. She denies any blood in her stool or emesis. She has had mild heartburn in the past, and states that this did not feel anything like that. She has not had any recent sick contacts. Prior to 2 nights ago she was feeling well without any issues. The patient denies any recent cough, shortness of breath, chest pain, ear pain, sore throat, dysuria, urinary frequency urgency. In the emergency room, lab work was completed that was unrevealing other than a slightly elevated white blood cell count. Abdominal x-ray and CT scan were also normal. Discharge Providers Provider Date of admission: 01/26/21 06:20 Discharge Date: 01/27/21 Primary care physician: Nataly Gatica MD Discharge provider: Nataly Gatica MD Summary Hospital Course Discharge Diagnosis: Abdominal pain Fever Hypothyroidism Hospital Course: Patient presented with vague abdominal pain and low-grade fever. She had a complete workup done in the emergency room that was unrevealing. She was admitted for IV fluids. While in the hospital, her pain gradually improved. She had no recurring nausea or vomiting. She did have a small bowel movement while in the hospital. She had no recurrence of her fever. Her diet was gradually advanced. She is discharged home today with instructions to continue current advancing her diet as tolerated. Most likely was mild viral gastroenteritis. Follow-up in 2 weeks with PCP. Status at Discharge Cognitive/behavioral status at discharge: oriented Functional status at discharge: independent ambulation Overall status at discharge: patient is progressing back to baseline Time Spent with Patient Time spent: Greater than 30 minutes Exam Vital Signs (past 8 hours): - 01/27/21 09:00 Temperature 97.6 F Pulse Rate 72 Respiratory Rate 18 Blood Pressure 108/62 Pulse Oximetry 98 Oxygen Delivery Method Room Air Oxygen Flow Rate 0 Narrative Exam Narrative: General: no acute distress, sitting comfortably in bed, appears well CV: Regular rate and rhythm, no murmurs respiratory: Clear to auscultation bilaterally back abdomen: Soft, nontender, nondistended, normoactive bowel sounds, no masses or hepatosplenomegaly Extremities: No edema Objective Labs Result Diagrams: 01/27/21 05:20 01/27/21 05:20 Labs: Laboratory Results - last 24 hr 01/27/21 01/27/21 05:20 05:20 WBC 11.6 H RBC 3.88 L Hgb 11.8 L Hct 36.4 MCV 93.9 MCH 30.5 MCHC 32.5 RDW 13.6 Plt Count 101 L Neut % (Auto) 50.2 Lymph % (Auto) 41.5 H Harlan % (Auto) 7.3 Eos % (Auto) 0.8 L Baso % (Auto) 0.2 Neut # (Auto) 5800 Lymph # (Auto) 4800 H Harlan # (Auto) 900 Eos # (Auto) 100 Baso # (Auto) 0 Sodium 138 Potassium 3.7 Chloride 108 H Carbon Dioxide 27 BUN 10 Creatinine 0.47 L Estimated GFR > 60.0 BUN/Creatinine Ratio 21.3 Glucose 126 H Calcium 8.8 Total Bilirubin 0.8 AST 24 ALT 18 Alkaline Phosphatase 42 Total Protein 6.1 L Albumin 3.2 L Globulin 2.9 Albumin/Globulin Ratio 1.1 [facility] Medical History Hypothyroidism Menopause Monoclonal B-cell lymphocytosis Surgical History History of bilateral salpingectomy History of intestinal surgery (1988) Status post appendectomy Status post cholecystectomy (02/2006) Family History Sister RA (rheumatoid arthritis) Social History marital status: number of children: 2 household members: spouse lives independently: Yes caregiver/support person: No housing: house education level: college occupational status: employed ([employer]) Smoking Status: Former smoker second hand exposure: No alcohol intake: current substance use type: does not use Discharge Plan Discharge Plan Patient Disposition: Home Discharge orders & Medications Prescriptions: New pantoprazole 20 mg Tablet,Delayed Release (Dr/Ec) 20 mg PO DAILY Qty: 30 RF: 0 Continued VITAMIN D (Vitamin D3) 1,000 unit PO QDAY Qty: 0 RF: 0 BIOTIN 1,000 mcg PO QDAY Qty: 0 RF: 0 Vitamin B-12 50 MCG tablet 50 mcg PO DAILY Qty: 0 RF: 0 trazodone 100 mg tablet 100 mg PO BEDTIME Qty: 30 RF: 1 levothyroxine 125 mcg tablet 125 mcg PO DAILY Qty: 90 RF: 2 Follow up/Referrals: Nataly Gatica MD [Primary Care Provider] - 02/06/21 4:00 pm (APPT:02/06 @ 4:[address] gatica ) Diet/Activity/Treatments Diet: Diet as Tolerated and Regular Skin/Wound/Dressing Care Report to your healthcare provider any signs of infection, such as:: chills, fever and increased pain Visit Report/Discharge Packet Instructions: Heartburn -- Overview, Gastroesophageal Reflux Disease -- Adolescent Visit Report Forms: Patient Portal/API, Stroke Signs & Symptoms Discharge Data Primary Care Provider: Nataly Gatica Attending Provider: Nataly Gatica Admit Date/Time: 01/26/21 06:20 Discharges patient from system. Discharge Date/Time: 01/27/21 14:51
--- NOTE | 2021-01-30 17:16 | PC.NURSE ---
Late Entry; Dextrose infusion initiated 01/26 at 07:13 complete at 17:14.
== END 2021-01-27 14:51 | disposition home or self-care (01) ==
LOC: ED 01-26 04:34 → AC 01-26 06:21
PROVIDERS: Internal Medicine; Admitting Provider Family Medicine; Emergency Provider Emergency Medicine; PCP Family Medicine; Visit Provider Family Medicine
DX: R10.13 Epigastric pain (principal); R50.9 Fever, unspecified; D72.820 Lymphocytosis (symptomatic); E03.9 Hypothyroidism, unspecified; Z20.822 Contact with and (suspected) exposure to COVID-19
CPT/HCPCS: 36415; 74022; 74177; 80053; 81001; 83690; 85025; 87635; 93005; 96360; 96361; 99217; 99219; 99284; C9803; G0378; Q9967

== ENCOUNTER → 2021-09-10 10:28 | Outpatient (CLI) | payer MEDICARE, OTHER, SELFPAY ==
[2021-01-26 06:58] VITALS: BMI 22.8
--- NOTE | 2021-09-10 | DI.MG.S_ITS ---
BILATERAL DIGITAL SCREENING MAMMOGRAM 3D/2D WITH CAD: 09/10/2021 CLINICAL: Routine screening. Comparison is made to exams dated: 09/01/2020 mammogram, 08/31/2019 mammogram, and 08/21/2018 mammogram - [facility]. The tissue of both breasts is heterogeneously dense. This may lower the sensitivity of mammography. Current study was also evaluated with a Computer Aided Detection (CAD) system. No significant masses, calcifications, or other findings are seen in either breast. There has been no significant interval change. IMPRESSION: NEGATIVE There is no mammographic evidence of malignancy. A 1 year screening mammogram is recommended. This exam was interpreted at Station ID: [id number]. NOTE: For mammograms, a report in lay terms will be sent to the patient. Approximately 15% of breast malignancies will not be visualized mammographically. In the management of a palpable breast mass, a negative mammogram must not discourage biopsy of a clinically suspicious lesion. Electronically Signed By: Zay velez/lachelle:09/10/2021 11:08:47 letter sent: Normal Exam ACR BI-RADS Category 1: Negative 3341F
== END ==
PROVIDERS: PCP Family Medicine; Referring Provider Family Medicine; Visit Provider Family Medicine
DX: Z12.31 Encounter for screening mammogram for malignant neoplasm of breast (principal)
CPT/HCPCS: 77063; 77067

== ENCOUNTER → 2022-04-07 07:01 | Outpatient (CLI) | payer MEDICARE, OTHER, SELFPAY ==
[2021-01-26 06:58] VITALS: BMI 22.8
[2022-04-07 09:56] LABS: Hematocrit 39.6 % (36-46); Hemoglobin 13.2 g/dL (12.0-16.0); Mean Corpuscular HGB Conc 33.4 % (30-36); Mean Corpuscular Hemoglobin 31.2 PG (26-34); Mean Corpuscular Volume 93.5 fL (80-100); Platelet Count 134 X10^3/uL (150-400); Red Blood Cell Count 4.23 X10^6/uL (4.0-5.2); Red Cell Distribution Width 13.3 % (11.6-14.8); White Blood Cell Count 10.5 X10^3/uL (4.5-11.0)
[2022-04-07 09:57] LABS: Add Manual Diff / Slide Review YES
[2022-04-07 10:12] LABS: Alanine Aminotransferase 13 IU/L (<35); Albumin 4.2 g/dL (3.5-5.0); Albumin Globulin Ratio 1.4 (1.0-2.8); Alkaline Phosphatase 61 U/L (38-126); Aspartate Aminotransferase 22 IU/L (14-36); BUN Creatinine Ratio 25.3 (6-22); Bilirubin Total 0.7 mg/dL (0.2-1.3); Blood Urea Nitrogen 20 mg/dL (7-17); Calcium 8.9 mg/dL (8.4-10.2); Carbon Dioxide 28 mmol/L (22-32); Chloride 105 mmol/L (98-107); Cholesterol 263 mg/dL (140-199); Estimated Glomerular Filt Rate > 60 mL/min (>60); Glucose 94 mg/dL (80-110); HDL Cholesterol 76 mg/dL (40-60); HEMOLYSIS < 15 (0-50); LDL Cholesterol Calculated 174 mg/dL (<100); Sodium 140 mmol/L (137-145); Total Protein 7.2 g/dL (6.3-8.2); Triglycerides 64 mg/dL (35-150)
[2022-04-07 10:14] LABS: Neutrophils Absolute Manual 1890 /uL (3000-5900); RBC Morphology Normal Morphology; Smudge Cells 1+; Total Cells Counted 100
[2022-04-07 10:44] LABS: TSH w/ Reflex to FT4 2.24 uIU/mL (0.47-4.68)
== END ==
PROVIDERS: PCP Family Medicine; Referring Provider Family Medicine; Visit Provider Family Medicine
DX: E03.9 Hypothyroidism, unspecified (principal); E78.5 Hyperlipidemia, unspecified
CPT/HCPCS: 36415; 80053; 80061; 84443; 85007; 85025

== ENCOUNTER → 2022-09-17 14:31 | Outpatient (CLI) | payer MEDICARE, OTHER, SELFPAY ==
[2021-01-26 06:58] VITALS: BMI 22.8
--- NOTE | 2022-09-17 | DI.MG.S_ITS ---
BILATERAL DIGITAL SCREENING MAMMOGRAM 3D/2D WITH CAD: 09/17/2022 CLINICAL: Routine screening. Comparison is made to exams dated: 09/10/2021 mammogram, 09/01/2020 mammogram, and 09/01/2020 mammogram - [facility]. There are scattered areas of fibroglandular density in both breasts (category b / 25%-50% glandular tissue). Current study was also evaluated with a Computer Aided Detection (CAD) system. No significant masses, calcifications, or other findings are seen in either breast. There has been no significant interval change. IMPRESSION: NEGATIVE There is no mammographic evidence of malignancy. A 1 year screening mammogram is recommended. Based on the Tyrer Cuzick model (a risk assessment model) the patient's lifetime risk is 5.4% and her 10 year risk is 2.7%. According to the ACR, ACS, and NCCN guidelines, an annual breast MRI exam along with mammogram is recommended if the patient's lifetime risk is 20% or greater. This exam was interpreted at Station ID: [id number]. NOTE: For mammograms, a report in lay terms will be sent to the patient. Approximately 15% of breast malignancies will not be visualized mammographically. In the management of a palpable breast mass, a negative mammogram must not discourage biopsy of a clinically suspicious lesion. Electronically Signed By: Reshma zavala/lachelle:09/17/2022 17:52:02 letter sent: Normal Exam ACR BI-RADS Category 1: Negative 3341F
== END ==
PROVIDERS: PCP Family Medicine; Referring Provider Family Medicine; Visit Provider Family Medicine
DX: Z12.31 Encounter for screening mammogram for malignant neoplasm of breast (principal)
CPT/HCPCS: 77063; 77067

== ENCOUNTER → 2022-12-09 16:11 | Outpatient (CLI) | payer MEDICARE, OTHER, SELFPAY ==
[2021-01-26 06:58] VITALS: BMI 22.8
--- NOTE | 2022-12-09 16:13 | DI.RAD.S_ITS ---
PROCEDURE: XR KNEE LT 3V INDICATIONS: Medial L knee pain TECHNIQUE: 3 views of the knee were acquired. COMPARISON: None. FINDINGS: Bones: No fractures or dislocations. No suspicious bony lesions. Mild medial compartment joint space narrowing. Mild patellofemoral lateral facet joint space narrowing noted as well. Soft tissues: No joint effusion. No suspicious soft tissue calcifications. IMPRESSION: Mild arthritic joint space narrowing Approved by: Beau Connor M.D. on 12/09/2022 at 18:26
== END ==
PROVIDERS: PCP Family Medicine; Referring Provider Physician Assistant; Visit Provider Physician Assistant
DX: M25.562 Pain in left knee (principal)
CPT/HCPCS: 73562

== ENCOUNTER → 2023-11-02 11:44 | Outpatient (CLI) | payer MEDICARE, OTHER, SELFPAY ==
[2021-01-26 06:58] VITALS: BMI 22.8
--- NOTE | 2023-11-02 11:46 | DI.MG.S_ITS ---
BILATERAL DIGITAL SCREENING MAMMOGRAM 3D/2D WITH CAD: 11/02/2023 CLINICAL: Routine screening. Comparison is made to exams dated: 09/17/2022 mammogram, 09/10/2021 mammogram, and 09/01/2020 mammogram - [facility]. Both breasts are heterogeneously dense, which may obscure small masses (category c / 51-75% glandular tissue). Current study was also evaluated with a Computer Aided Detection (CAD) system. No significant masses, calcifications, or other findings are seen in either breast. There has been no significant interval change. IMPRESSION: NEGATIVE There is no mammographic evidence of malignancy. A 1 year screening mammogram is recommended. Based on the Tyrer Cuzick model (a risk assessment model) the patient's lifetime risk is 7.8% and her 10 year risk is 4.1%. According to the ACR, ACS, and NCCN guidelines, an annual breast MRI exam along with mammogram is recommended if the patient's lifetime risk is 20% or greater. This exam was interpreted at Station ID: [id number]. NOTE: For mammograms, a report in lay terms will be sent to the patient. Approximately 15% of breast malignancies will not be visualized mammographically. In the management of a palpable breast mass, a negative mammogram must not discourage biopsy of a clinically suspicious lesion. Electronically Signed By: Zay velez/lachelle:11/02/2023 12:35:44 letter sent: Normal Exam ACR BI-RADS Category 1: Negative 3341F
== END ==
LOC: MAMMO 11:45
PROVIDERS: PCP Family Medicine; Referring Provider Family Medicine; Visit Provider Family Medicine
DX: Z12.31 Encounter for screening mammogram for malignant neoplasm of breast (principal); R92.333 Mammographic heterogeneous density, bilateral breasts
CPT/HCPCS: 77063; 77067

== ENCOUNTER → 2024-02-22 07:14 | Outpatient (CLI) | payer MEDICARE, OTHER, SELFPAY ==
[2021-01-26 06:58] VITALS: BMI 22.8
[2024-02-22 08:16] LABS: Hematocrit 38.7 % (36-46); Hemoglobin 12.9 g/dL (12.0-16.0); Mean Corpuscular HGB Conc 33.2 % (30-36); Mean Corpuscular Hemoglobin 31.6 PG (26-34); Mean Corpuscular Volume 94.9 fL (80-100); Platelet Count 97 X10^3/uL (150-400); Red Blood Cell Count 4.08 X10^6/uL (4.0-5.2); Red Cell Distribution Width 13.6 % (11.6-14.8); White Blood Cell Count 7.8 X10^3/uL (4.5-11.0)
[2024-02-22 08:18] LABS: Add Manual Diff / Slide Review YES
[2024-02-22 08:29] LABS: Neutrophils Absolute Manual 1482 /uL (3000-5900); RBC Morphology Normal Morphology; Total Cells Counted 100
[2024-02-22 08:45] LABS: Alanine Aminotransferase 16 IU/L (<35); Albumin 3.9 g/dL (3.5-5.0); Albumin Globulin Ratio 1.4 (1.0-2.8); Alkaline Phosphatase 50 U/L (38-126); Aspartate Aminotransferase 23 IU/L (14-36); BUN Creatinine Ratio 23.4 (6-22); Bilirubin Total 0.5 mg/dL (0.2-1.3); Blood Urea Nitrogen 18 mg/dL (7-17); Carbon Dioxide 28 mmol/L (22-32); Chloride 107 mmol/L (98-107); Cholesterol 251 mg/dL (140-199); Estimated Glomerular Filt Rate > 60 mL/min (>60); Globulin 2.7 g/dL (1.7-4.1); Glucose 101 mg/dL (80-110); HDL Cholesterol 70 mg/dL (40-60); HEMOLYSIS < 15 (0-50); LDL Cholesterol Calculated 163 mg/dL (<100); Potassium 4.1 mmol/L (3.4-5.1); Sodium 140 mmol/L (137-145); Total Protein 6.6 g/dL (6.3-8.2); Triglycerides 90 mg/dL (35-150)
[2024-02-22 09:07] LABS: TSH w/ Reflex to FT4 1.47 uIU/mL (0.47-4.68)
== END ==
PROVIDERS: PCP Family Medicine; Referring Provider Family Medicine; Visit Provider Family Medicine
DX: D72.820 Lymphocytosis (symptomatic) (principal); E03.9 Hypothyroidism, unspecified; E78.5 Hyperlipidemia, unspecified
CPT/HCPCS: 36415; 80053; 80061; 84443; 85007; 85025

== ENCOUNTER → 2025-01-02 08:23 | Outpatient (CLI) | payer MEDICARE, OTHER, SELFPAY ==
[2021-01-26 06:58] VITALS: BMI 22.8
[2025-01-02 10:12] LABS: Add Manual Diff / Slide Review YES; Hematocrit 40.1 % (36-46); Hemoglobin 13.5 g/dL (12.0-16.0); Mean Corpuscular HGB Conc 33.6 % (30-36); Mean Corpuscular Hemoglobin 31.7 PG (26-34); Mean Corpuscular Volume 94.1 fL (80-100); Platelet Count 126 X10^3/uL (150-400)
[2025-01-02 10:15] LABS: Alanine Aminotransferase 19 IU/L (<35); Albumin 4.4 g/dL (3.5-5.0); Albumin Globulin Ratio 1.6 (1.0-2.8); Alkaline Phosphatase 57 U/L (38-126); Blood Urea Nitrogen 22 mg/dL (7-17); Calcium 9.4 mg/dL (8.4-10.2); Carbon Dioxide 28 mmol/L (22-32); Chloride 104 mmol/L (98-107); Cholesterol 282 mg/dL (140-199); Estimated Glomerular Filt Rate > 60 mL/min (>60); Globulin 2.7 g/dL (1.7-4.1); Glucose 104 mg/dL (70-99); HDL Cholesterol 78 mg/dL (40-60); HEMOLYSIS < 15 (0-50); Potassium 4.3 mmol/L (3.4-5.1); Sodium 137 mmol/L (137-145); Total Protein 7.1 g/dL (6.3-8.2); Triglycerides 87 mg/dL (35-150)
[2025-01-02 10:16] LABS: Atypical Lymphocytes Percent 3.0 %; Eosinophils Percent Manual 1.0 % (2-4); Lymphocytes Percent Manual 72.0 % (25-45); Monocytes Percent Manual 2.0 % (2-11); Neutrophils Absolute Manual 2926 /uL (3000-5900); Segmented Neutrophils Percent 22.0 % (38-70); Total Cells Counted 100
[2025-01-02 10:21] LABS: RBC Morphology Normal Morphology; Smudge Cells 1+
[2025-01-02 10:38] LABS: Thyroid Stimulating Hormone 1.31 uIU/mL (0.47-4.68)
== END ==
PROVIDERS: PCP Family Medicine; Referring Provider Family Medicine; Visit Provider Family Medicine
DX: E03.9 Hypothyroidism, unspecified (principal)
CPT/HCPCS: 36415; 80053; 80061; 84443; 85007; 85025

== ENCOUNTER → 2025-01-08 13:03 | Outpatient (CLI) | payer MEDICARE, OTHER, SELFPAY ==
[2021-01-26 06:58] VITALS: BMI 22.8
--- NOTE | 2025-01-08 13:04 | DI.MG.S_ITS ---
MM screening mammo BI: 01/08/2025. BI-RADS: 1 CLINICAL: 69-year old female for bilateral screening mammogram. Tyrer-Cuzick lifetime risk of 5.9%. No personal or first-degree family history of breast cancer. PRIOR EXAMS 11/02/2023, 09/17/2022, 09/10/2021, 09/01/2020. MAMMOGRAPHY TECHNIQUE: 2D and 3D (tomosynthesis) digital mammographic views obtained, with additional images as needed for full coverage. Current study was also evaluated with a Computer Aided Detection (CAD) system. DENSITY C. The breasts are heterogeneously dense, which may obscure small masses. MAMMOGRAPHY FINDINGS Bilateral: No suspicious mass, asymmetry, microcalcification, or other abnormality seen. No significant change from comparison. IMPRESSION: * No evidence of malignancy. RECOMMENDATIONS Bilateral * Annual screening mammography. OVERALL ASSESSMENT CATEGORY BI-RADS-1: Negative. The [employer] recommends annual screening mammography beginning at age 40 for women with average risk of breast cancer. ELECTRONICALLY SIGNED: Mirtha Child M.D. on 01/08/2025 at 03:44:58 PM PT Interpreting Station ID: [id number]
== END ==
PROVIDERS: PCP Family Medicine; Referring Provider Family Medicine; Visit Provider Family Medicine
DX: Z12.31 Encounter for screening mammogram for malignant neoplasm of breast (principal); R92.333 Mammographic heterogeneous density, bilateral breasts
CPT/HCPCS: 77063; 77067

== ENCOUNTER → 2025-04-12 07:42 | Outpatient (CLI) | payer MEDICARE, OTHER, SELFPAY ==
[2021-01-26 06:58] VITALS: BMI 22.8
[2025-04-12 09:25] LABS: Alanine Aminotransferase 36 IU/L (<35); Albumin 4.5 g/dL (3.5-5.0); Albumin Globulin Ratio 1.7 (1.0-2.8); Alkaline Phosphatase 60 U/L (38-126); Cholesterol 173 mg/dL (140-199); Globulin 2.7 g/dL (1.7-4.1); HDL Cholesterol 96 mg/dL (40-60); HEMOLYSIS < 15 (0-50); Total Protein 7.2 g/dL (6.3-8.2); Triglycerides 78 mg/dL (35-150)
== END ==
PROVIDERS: PCP Family Medicine; Referring Provider Internal Medicine Cardiovascular Disease; Visit Provider Internal Medicine Cardiovascular Disease
DX: E78.5 Hyperlipidemia, unspecified (principal); Z82.49 Family history of ischemic heart disease and other diseases of the circulatory system; I45.10 Unspecified right bundle-branch block
CPT/HCPCS: 36415; 80061; 80076